=== PATIENT | female | born 1960 | race Caucasian/White ===

== ENCOUNTER → 2017-05-05 | Outpatient (CLI) | payer OTHER ==
[~2017-05-05] MED LIST: ALLERGY TAB OTC PO; Adipex-P37.5 M1 PO; Adipex-P37.5 MG PO; BENADRYL25 MG PO; CEFU250T47 PO; FLUC150A PO; Invanz1 GM IV; LEVO-T175 MCG PO; LEVO-T200 MCG; METO25ER PO; MULTI VITAMIN1 EACH; Multiple Vitam1 EAC1 PO; Omeprazole20 M1 PO; Pyridium200 MG PO; SYNTHROID25 MCG PO; Synthroid200 MCG PO
== END | disposition home or self-care (01) ==
LOC: LAB EV 08:22
DX: N39.0 Urinary tract infection, site not specified (principal)
CPT/HCPCS: 87077; 87086; 87186

== ENCOUNTER 2017-05-07 16:53 | Observation (INO) | payer OTHER ==
[~2017-05-07] VITALS: Ht 160 cm; Wt 110.0 kg
[~2017-05-07 16:53] MED LIST changes: -ALLERGY TAB OTC PO; -Adipex-P37.5 MG PO; -BENADRYL25 MG PO; -CEFU250T47 PO; -FLUC150A PO; -Invanz1 GM IV; -LEVO-T175 MCG PO; -LEVO-T200 MCG; -MULTI VITAMIN1 EACH; -Pyridium200 MG PO
[2017-05-07] MEDS ORDERED: CEFU250T47 PO ×2 (17:03)
[2017-05-07] MEDS ORDERED: FLUC150A PO ×2 (17:04)
[2017-05-07] MEDS ORDERED: LEVO-T175 MCG PO ×2 (17:04)
[2017-05-07] MEDS ORDERED: Pyridium200 MG PO ×2 (17:04)
[2017-05-07 17:08] LABS: Source, Urine Clean Catch
[2017-05-07 17:14] LABS: Appearance, Urine Hazy (Clear); Blood, Urine 3+ (Neg); Color, Urine Yellow (P-Yellow); Glucose Qualitative, Urine Neg (Neg); Ketones, Urine Neg (Neg); Leukocyte Esterase, Urine 3+ (Neg); Nitrite, Urine Pos (Neg); Protein, Urine 1+ (Neg); Urobilinogen, Urine 2+ (Normal); pH, Urine 6.5 (5.0-8.0)
[2017-05-07 17:28] LABS: Bilirubin, Urine 2+ (Neg)
[2017-05-07 17:31] LABS: Bacteria Few /hpf; Red Blood Cells, Urine 0-2 /hpf (0-2); Squamous Epithelial Cells Rare /hpf (Few); White Blood Cells, Urine 25-50 /hpf (0-5)
[2017-05-07 18:11] LABS: BASOPHILS ABSOLUTE AUTO 0.04 K/mm3 (0.00-0.23); BASOPHILS PERCENT AUTO 0 % (0-2); EOSINOPHILS PERCENT AUTO 1 % (0-6); Hematocrit 41.5 % (33.0-51.0); Hemoglobin 13.5 g/dL (11.5-16.0); IMMATURE GRAN ABSOLUTE AUTO 0.03 K/mm3 (0.00-0.10); IMMATURE GRAN PERCENT AUTO 0 % (0-1); LYMPHOCYTES ABSOLUTE AUTO 2.23 K/mm3 (0.84-5.20); LYMPHOCYTES PERCENT AUTO 20 % (21-46); MONOCYTES ABSOLUTE AUTO 0.66 K/mm3 (0.16-1.47); MONOCYTES PERCENT AUTO 6 % (4-13); Mean Corpuscular HGB Conc 32.5 g/dL (31.5-36.5); Mean Corpuscular Volume 92 fL (80-100); Mean Platelet Volume 12.3 fL (9.1-12.4); NEUTROPHILS ABSOLUTE AUTO 7.87 K/mm3 (1.96-9.15); NEUTROPHILS PERCENT AUTO 72 % (41-73); Platelet Count 286 K/mm3 (150-400); RDW Coefficient Variation 14.1 % (11.7-14.2); White Blood Cell Count 10.93 K/mm3 (4.00-11.30)
[2017-05-07 18:31] LABS: Anion Gap 8 mmol/L (6-16); Blood Urea Nitrogen 14 mg/dL (8-24); Bun/Creatinine Ratio 17.3 (12.0-20.0); CO2, Blood 27 mmol/L (21-32); Calcium, Blood 8.5 mg/dL (8.5-10.1); Chloride, Blood 108 mmol/L (98-108); Creatinine, Blood 0.81 mg/dL (0.40-1.00); Glomerular Filtration Rate >60 (60-); Glucose, Blood 115 mg/dL (70-99); Sodium, Blood 143 mmol/L (136-145)
[2017-05-07] MEDS ORDERED: Adipex-P37.5 MG PO ×2 (18:53)
[2017-05-07] MEDS ORDERED: ALLERGY TAB OTC PO ×2 (21:16)
[2017-05-09] MEDS ORDERED: Invanz1 GM IV ×2 (12:42)
[2017-09-01] MEDS ORDERED: MULTI VITAMIN1 EACH (09:03)
[2017-09-01] MEDS ORDERED: LEVO-T200 MCG (09:03)
== END 2017-05-09 15:09 | disposition home or self-care (01) ==
LOC: ER 16:53 → MEDS 16:54 → ENPENDDIS 05-09 12:00 → MEDS 05-09 15:09
PROVIDERS: Emergency Medicine; Physician Assistant
DX: N39.0 Urinary tract infection, site not specified (principal); E03.9 Hypothyroidism, unspecified; E66.01 Morbid (severe) obesity due to excess calories; B96.29 Other Escherichia coli [E. coli] as the cause of diseases classified elsewhere; R03.0 Elevated blood-pressure reading, without diagnosis of hypertension; Z90.710 Acquired absence of both cervix and uterus; Z98.890 Other specified postprocedural states; Z79.899 Other long term (current) drug therapy; Z68.41 Body mass index [BMI] 40.0-44.9, adult
CPT/HCPCS: 36415; 36569; 80048; 81001; 85025; 87077; 87086; 87186; 93005; 93010; 96361; 96366; 96374; 99285; C1751; G0378; J2185; J7030

== ENCOUNTER 2017-05-10 00:29 | Day surgery (SDC) | payer OTHER ==
[~2017-05-10 00:29] MED LIST changes: +ALLERGY TAB OTC PO; +Adipex-P37.5 MG PO; +CEFU250T47 PO; +FLUC150A PO; +Invanz1 GM IV; +LEVO-T175 MCG PO; +Pyridium200 MG PO
[2017-05-11] MEDS ORDERED: BENADRYL25 MG PO (09:57)
[2017-09-01] MEDS ORDERED: MULTI VITAMIN1 EACH (09:03)
[2017-09-01] MEDS ORDERED: LEVO-T200 MCG (09:03)
== END 2017-05-10 12:31 | disposition home or self-care (01) ==
LOC: ATC 00:29
DX: N39.0 Urinary tract infection, site not specified (principal); B96.29 Other Escherichia coli [E. coli] as the cause of diseases classified elsewhere; Z16.12 Extended spectrum beta lactamase (ESBL) resistance; E03.9 Hypothyroidism, unspecified; E66.01 Morbid (severe) obesity due to excess calories
CPT/HCPCS: 96374; J1335; Q0163

== ENCOUNTER 2017-05-11 00:28 | Day surgery (SDC) | payer OTHER ==
[2017-05-11] MEDS ORDERED: BENADRYL25 MG PO (09:57)
[2017-09-01] MEDS ORDERED: LEVO-T200 MCG (09:03)
[2017-09-01] MEDS ORDERED: MULTI VITAMIN1 EACH (09:03)
== END 2017-05-11 09:55 | disposition home or self-care (01) ==
LOC: ATC 00:28
DX: N39.0 Urinary tract infection, site not specified (principal); B96.20 Unspecified Escherichia coli [E. coli] as the cause of diseases classified elsewhere; Z16.12 Extended spectrum beta lactamase (ESBL) resistance; E03.9 Hypothyroidism, unspecified; E66.01 Morbid (severe) obesity due to excess calories
CPT/HCPCS: 96374; J1335

== ENCOUNTER 2017-05-12 00:31 | Day surgery (SDC) | payer OTHER ==
[~2017-05-12 00:31] MED LIST changes: +BENADRYL25 MG PO
[2017-09-01] MEDS ORDERED: MULTI VITAMIN1 EACH (09:03)
[2017-09-01] MEDS ORDERED: LEVO-T200 MCG (09:03)
== END 2017-05-12 11:48 | disposition home or self-care (01) ==
LOC: ATC 00:31
DX: N39.0 Urinary tract infection, site not specified (principal); B96.20 Unspecified Escherichia coli [E. coli] as the cause of diseases classified elsewhere; E03.9 Hypothyroidism, unspecified; E66.01 Morbid (severe) obesity due to excess calories; Z95.828 Presence of other vascular implants and grafts; Z79.899 Other long term (current) drug therapy
CPT/HCPCS: 96374; J1335

== ENCOUNTER 2017-05-13 01:01 | Day surgery (SDC) | payer OTHER ==
[2017-09-01] MEDS ORDERED: LEVO-T200 MCG (09:03)
[2017-09-01] MEDS ORDERED: MULTI VITAMIN1 EACH (09:03)
== END 2017-05-13 13:50 | disposition home or self-care (01) ==
LOC: ATC 01:01
DX: N39.0 Urinary tract infection, site not specified (principal); B96.29 Other Escherichia coli [E. coli] as the cause of diseases classified elsewhere; Z16.12 Extended spectrum beta lactamase (ESBL) resistance; E03.9 Hypothyroidism, unspecified; E66.01 Morbid (severe) obesity due to excess calories; I10 Essential (primary) hypertension
CPT/HCPCS: 96374; J1335

== ENCOUNTER 2017-05-14 | Day surgery (SDC) | END 2017-05-14 10:27 | disposition home or self-care (01) ==

== ENCOUNTER 2017-05-15 | Day surgery (SDC) | END 2017-05-15 10:21 | disposition home or self-care (01) ==

== ENCOUNTER 2017-05-16 | Day surgery (SDC) | END 2017-05-16 15:08 | disposition home or self-care (01) ==

== ENCOUNTER 2017-05-17 00:11 | Day surgery (SDC) | payer OTHER ==
[2017-09-01] MEDS ORDERED: LEVO-T200 MCG (09:03)
[2017-09-01] MEDS ORDERED: MULTI VITAMIN1 EACH (09:03)
== END 2017-05-17 10:15 | disposition home or self-care (01) ==
LOC: ATC 00:11
DX: N39.0 Urinary tract infection, site not specified (principal); B96.29 Other Escherichia coli [E. coli] as the cause of diseases classified elsewhere; Z16.12 Extended spectrum beta lactamase (ESBL) resistance
CPT/HCPCS: 96374; J1335

== ENCOUNTER 2017-05-18 00:19 | Day surgery (SDC) | payer OTHER ==
[2017-09-01] MEDS ORDERED: MULTI VITAMIN1 EACH (09:03)
[2017-09-01] MEDS ORDERED: LEVO-T200 MCG (09:03)
== END 2017-05-18 10:06 | disposition home or self-care (01) ==
LOC: ATC 00:19
DX: N39.0 Urinary tract infection, site not specified (principal); B96.29 Other Escherichia coli [E. coli] as the cause of diseases classified elsewhere; Z16.12 Extended spectrum beta lactamase (ESBL) resistance; E03.9 Hypothyroidism, unspecified; E66.01 Morbid (severe) obesity due to excess calories
CPT/HCPCS: 96374; J1335

== ENCOUNTER 2017-05-24 15:51 | Day surgery (SDC) | payer OTHER ==
[2017-09-01] MEDS ORDERED: MULTI VITAMIN1 EACH (09:03)
[2017-09-01] MEDS ORDERED: LEVO-T200 MCG (09:03)
== END 2017-05-24 16:16 | disposition home or self-care (01) ==
LOC: ATC 15:51
DX: N39.0 Urinary tract infection, site not specified (principal); B96.29 Other Escherichia coli [E. coli] as the cause of diseases classified elsewhere; Z16.12 Extended spectrum beta lactamase (ESBL) resistance; E03.9 Hypothyroidism, unspecified; E66.01 Morbid (severe) obesity due to excess calories
CPT/HCPCS: 99211

== ENCOUNTER → 2017-05-25 | Outpatient (CLI) | payer OTHER ==
[~2017-05-25] MED LIST changes: +LEVO-T200 MCG; +MULTI VITAMIN1 EACH
[2017-05-25 14:57] LABS: Source, Urine Clean Catch
[2017-05-25 15:25] LABS: Appearance, Urine Clear (Clear); Bilirubin, Urine Neg (Neg); Blood, Urine Neg (Neg); Color, Urine Yellow (P-Yellow); Glucose Qualitative, Urine Neg (Normal); Ketones, Urine Neg (Neg); Leukocyte Esterase, Urine Neg (Neg); Nitrite, Urine Neg (Neg); Protein, Urine Neg (Neg); Urobilinogen, Urine NORM (Normal)
== END | disposition home or self-care (01) ==
LOC: LAB SHORT 14:56
PROVIDERS: Nurse Practitioner Family
DX: N39.0 Urinary tract infection, site not specified (principal); E03.9 Hypothyroidism, unspecified
CPT/HCPCS: 81003

== ENCOUNTER 2017-06-01 14:53 | Day surgery (SDC) | payer OTHER ==
[~2017-06-01 14:53] MED LIST changes: -LEVO-T200 MCG; -MULTI VITAMIN1 EACH
[2017-09-01] MEDS ORDERED: MULTI VITAMIN1 EACH (09:03)
[2017-09-01] MEDS ORDERED: LEVO-T200 MCG (09:03)
== END 2017-06-01 16:05 | disposition home or self-care (01) ==
LOC: ATC 14:53
DX: A41.9 Sepsis, unspecified organism (principal); N39.0 Urinary tract infection, site not specified
CPT/HCPCS: 99211

== ENCOUNTER → 2017-06-24 | Outpatient (CLI) | payer OTHER | LOC: LAB EV 08:40 → LAB SHORT 08:40 → EDSTATUS 13:52 | DX: R30.0 Dysuria (principal) | CPT/HCPCS: 87070; 87077; 87086; 87186; 87205 ==

== ENCOUNTER 2017-09-08 09:35 | Day surgery (SDC) | payer OTHER ==
[~2017-09-08] VITALS: Ht 160 cm; Wt 117.0 kg
[~2017-09-08 09:35] MED LIST changes: +LEVO-T200 MCG; +MULTI VITAMIN1 EACH
== END 2017-09-08 12:42 | disposition home or self-care (01) ==
LOC: ORSCSDS 09:35
PROVIDERS: Podiatrist Foot & Ankle Surgery
PROC: 0QBP0ZZ Excision of Left Metatarsal, Open Approach (ICD-10-PCS; principal; 2017-09-08 11:00)
PROC: 0QSP0ZZ Reposition Left Metatarsal, Open Approach (ICD-10-PCS; principal; 2017-09-08 11:00)
DX: M21.622 Bunionette of left foot (principal); I10 Essential (primary) hypertension; E03.9 Hypothyroidism, unspecified; E66.01 Morbid (severe) obesity due to excess calories; Z68.42 Body mass index [BMI] 45.0-49.9, adult; Z79.899 Other long term (current) drug therapy
CPT/HCPCS: J1100; J1885; J2250; J2405; J3010; J7120

== ENCOUNTER 2017-11-10 06:19 | Day surgery (SDC) | payer OTHER ==
[~2017-11-10] VITALS: Ht 160 cm; Wt 120.8 kg
== END 2017-11-10 09:30 | disposition home or self-care (01) ==
LOC: ORSCSDS 06:19
PROVIDERS: Podiatrist Foot & Ankle Surgery
PROC: 0QBN0ZZ Excision of Right Metatarsal, Open Approach (ICD-10-PCS; principal; 2017-11-10 07:30)
PROC: 0QSN04Z Reposition Right Metatarsal with Internal Fixation Device, Open Approach (ICD-10-PCS; principal; 2017-11-10 07:30)
DX: M21.621 Bunionette of right foot (principal); M71.571 Other bursitis, not elsewhere classified, right ankle and foot; I10 Essential (primary) hypertension; E03.9 Hypothyroidism, unspecified; E66.01 Morbid (severe) obesity due to excess calories; Z68.42 Body mass index [BMI] 45.0-49.9, adult; Z79.899 Other long term (current) drug therapy
CPT/HCPCS: 88305; C1713; J0690; J1100; J2250; J2370; J2405; J3010; J7120

== ENCOUNTER → 2020-01-03 | Outpatient (CLI) | payer OTHER ==
[~2020-01-03] MED LIST changes: +PROM25 PO; +Percocet 5-3251 EACH
[2020-01-05 13:09] LABS: HPV 16 Negative (Negative); HPV 18 Negative (Negative); HPV OTHER HR TYPES Negative (Negative)
== END | disposition home or self-care (01) ==
LOC: LAB 13:26 → LAB SHORT 13:26
PROVIDERS: Nurse Practitioner Family
DX: Z12.4 Encounter for screening for malignant neoplasm of cervix (principal)
CPT/HCPCS: 87624; G0123

== ENCOUNTER → 2020-07-01 | Outpatient (CLI) | payer OTHER | END | disposition home or self-care (01) | LOC: LAB SRC 11:19 → LAB SHORT 11:19 → LAB FUT 06-30 10:25 | DX: R14.0 Abdominal distension (gaseous) (principal); R19.7 Diarrhea, unspecified | CPT/HCPCS: 0097U; 83993 ==

== ENCOUNTER → 2020-11-27 | Outpatient (CLI) | payer OTHER ==
[2020-11-27 12:35] LABS: BASOPHILS ABSOLUTE AUTO 0.02 K/mm3 (0.00-0.23); BASOPHILS PERCENT AUTO 0 % (0-2); EOSINOPHILS ABSOLUTE AUTO 0.11 K/mm3 (0.00-0.68); EOSINOPHILS PERCENT AUTO 2 % (0-6); Hematocrit 43.5 % (33.0-51.0); Hemoglobin 14.6 g/dL (11.5-16.0); IMMATURE GRAN ABSOLUTE AUTO 0.02 K/mm3 (0.00-0.10); IMMATURE GRAN PERCENT AUTO 0 % (0-1); LYMPHOCYTES ABSOLUTE AUTO 1.77 K/mm3 (0.84-5.20); LYMPHOCYTES PERCENT AUTO 26 % (21-46); MONOCYTES ABSOLUTE AUTO 0.36 K/mm3 (0.16-1.47); MONOCYTES PERCENT AUTO 5 % (4-13); Mean Corpuscular HGB 29.7 pg (26.0-34.0); Mean Corpuscular HGB Conc 33.6 g/dL (31.5-36.5); Mean Corpuscular Volume 89 fL (80-100); Mean Platelet Volume 11.9 fL (9.1-12.4); NEUTROPHILS ABSOLUTE AUTO 4.55 K/mm3 (1.96-9.15); NEUTROPHILS PERCENT AUTO 67 % (41-73); Platelet Count 418 K/mm3 (150-400); RDW Coefficient Variation 13.7 % (11.7-14.2); RDW Standard Deviation 43.9 fL (35.1-46.3); Red Blood Cell Count 4.91 M/mm3 (3.80-5.20); White Blood Cell Count 6.83 K/mm3 (4.00-11.30)
[2020-11-27 13:13] LABS: Alanine Aminotransfer (ALT/SGP 18 U/L (12-78); Albumin, Blood 3.3 g/dL (3.4-5.0); Albumin/Globulin Ratio 0.7 (0.8-1.8); Alk Phos 93 U/L (40-126); Anion Gap 10 mmol/L (6-16); Aspartate Aminotrans (AST/SGOT 17 U/L (12-37); Bilirubin, Total 0.6 mg/dL (0.1-1.0); Blood Urea Nitrogen 12 mg/dL (8-24); Bun/Creatinine Ratio 14.8 (12.0-20.0); CO2, Blood 28 mmol/L (21-32); Calcium, Blood 8.6 mg/dL (8.5-10.1); Chloride, Blood 105 mmol/L (98-108); Creatinine, Blood 0.81 mg/dL (0.40-1.00); Globulin, Blood 4.5 g/dL (2.2-4.0); Glomerular Filtration Rate >60 (60-); Glucose, Blood 97 mg/dL (70-99); Potassium, Blood 3.8 mmol/L (3.5-5.5); Sodium, Blood 143 mmol/L (136-145); Total Protein, Blood 7.8 g/dL (6.4-8.2)
[2020-11-27 13:14] LABS: Troponin I <0.017 ng/mL (0.000-0.040)
[2020-11-27 15:07] LABS: Ferritin, Serum 314 ng/mL (8-252); Iron Serum 36 ug/dL (50-170); Percent Saturation 12.6 % (15.0-50.0); Total Iron Binding Capacity 286 ug/dL (250-450)
== END | disposition home or self-care (01) ==
LOC: LAB 12:26 → LAB SHORT 12:26
PROVIDERS: Physician Assistant
DX: R07.9 Chest pain, unspecified (principal); R53.83 Other fatigue
CPT/HCPCS: 80053; 82607; 82728; 82746; 83540; 83550; 84484; 85025; 85379

== ENCOUNTER → 2021-06-18 | Outpatient (CLI) | payer OTHER ==
[2021-06-22 18:08] LABS: HSV-1 DNA Negative (Negative); HSV-2 DNA Negative (Negative)
== END ==
LOC: LAB SHORT 15:40 → LAB 15:40
PROVIDERS: Physician Assistant
DX: R21 Rash and other nonspecific skin eruption (principal)
CPT/HCPCS: 87529; 87798

== ENCOUNTER 2023-11-24 17:09 | Emergency (ER) | payer OTHER ==
[~2023-11-24] VITALS: Ht 160 cm; Wt 81.7 kg
[~2023-11-24 17:09] MED LIST changes: +LOSA50 PO
[2023-11-24 19:36] VITALS: BP 124/76
== END 2023-11-24 19:36 | disposition home or self-care (01) ==
LOC: ER 17:09
DX: H53.9 Unspecified visual disturbance (principal); E03.9 Hypothyroidism, unspecified; Z87.891 Personal history of nicotine dependence; Z79.899 Other long term (current) drug therapy; Z88.0 Allergy status to penicillin; Z91.048 Other nonmedicinal substance allergy status
CPT/HCPCS: 99283